=== PATIENT | male | born 1950 | race Caucasian/White ===

== ENCOUNTER 2017-01-12 08:05 | Outpatient (CLI) | payer BC, OTHER ==
--- NOTE | 2017-01-12 09:02 | RAD ---
ABDOMEN ONE VIEW: History: Abdominal pain. FINDINGS/IMPRESSION: The bowel gas pattern is unremarkable. No suspicious calcifications are seen. There are degenerative changes in the spine. POS: [facility]
== END 2017-01-12 08:06 | disposition home or self-care (01) ==
LOC: RAD-FRANK 08:05
PROVIDERS: ATTEND Nurse Practitioner Family
DX: R10.9 Unspecified abdominal pain (principal); M47.899 Other spondylosis, site unspecified
CPT/HCPCS: 74000

== ENCOUNTER 2018-11-09 07:50 | Outpatient (CLI) | payer MEDICARE, BC ==
--- NOTE | 2018-11-09 08:03 | RAD ---
Exam: Chest 2 views HISTORY:Cough Comparison: 05/05/2016 FINDINGS: Lungs: No masses or consolidation. Mild linear densities are seen bilaterally, likely volume loss. Cardiac silhouette: Normal size Pulmonary vessels: Normal Pleural Spaces: Clear Pneumothorax: None Osseous abnormalities: None of acuity. IMPRESSION: Stable exam. No focal consolidation.
== END 2018-11-09 07:51 | disposition home or self-care (01) ==
LOC: RAD-FRANK 07:50
PROVIDERS: ATTEND Nurse Practitioner Family
DX: R05 Cough (principal)
CPT/HCPCS: 71046

== ENCOUNTER 2022-07-09 08:07 | Outpatient (CLI) | payer MEDICARE, BC | END 2022-07-09 08:08 | disposition home or self-care (01) | LOC: RAD-FRANK 08:07 | PROVIDERS: ATTEND Nurse Practitioner Family | DX: R07.89 Other chest pain (principal) | CPT/HCPCS: 71046 ==

== ENCOUNTER 2022-08-05 07:54 | Outpatient (CLI) | payer MEDICARE, BC ==
[2022-08-05] MEDS ORDERED: Iopamidol 370 76% 100 ML VIAL ONE (10:22)
== END 2022-08-05 07:55 | disposition home or self-care (01) ==
LOC: BICCT 07:54
PROVIDERS: ATTEND Nurse Practitioner Family
DX: R07.89 Other chest pain (principal)
CPT/HCPCS: 71260; Q9967

== ENCOUNTER 2023-01-08 10:58 | Observation (INO) | payer MEDICARE, BC ==
[2023-01-08 11:30] LABS: #Basophils 0.1 thou/uL (0.0-0.2); #Eosinphils 0.6 thou/uL (0.0-0.7); #Neutrophils 6.1 thou/uL (1.40-6.50); %Basophils 0.6 % (0.0-1.0); %Eosinophils 5.8 % (0.0-10.0); %Lymphocytes 19.9 % (21.0-51.0); %Monocytes 10.5 % (0.0-10.0); Hematocrit 39.6 % (42.0-52.0); Hemoglobin 13.9 g/dL (14.0-18.0); Mean Corpuscular HGB CONC 35.1 g/dL (32.0-36.0); Mean Corpuscular Hemoglobin 30.5 pg (27.0-31.0); Mean Corpuscular Volume 86.8 fl (78.0-98.0); Mean Platelet Volume 9.5 fL (7.4-10.4); Platelet Count 250 10x3/uL (130-400); RBC Distribution Width 11.9 % (11.5-14.5); Red Blood Cell (RBC) Count 4.56 mill/uL (4.70-6.10); White Blood Cell (WBC) Count 9.7 10x3/uL (4.8-10.8)
[2023-01-08 11:58] LABS: ALT (SGPT) 15 U/L (8-55); AST (SGOT) 16 U/L (5-34); Albumin 4.9 g/dL (3.4-4.8); Alkaline Phosphatase 63 U/L (40-110); Anion Gap 12 mmol/L (10-20); BUN (Urea Nitrogen) 18 mg/dL (8.4-25.7); Bilirubin, Total 0.6 mg/dL (0.2-1.2); Calc. Creatinine Clearance 0 mL/min (70-130); Calcium 10.9 mg/dL (7.8-10.44); Carbon Dioxide 24 mmol/L (23-31); Chloride 106 mmol/L (98-107); Estimated GFR 71; Globulin 2.3 g/dL (2.4-3.5); Glucose 107 mg/dL (80-115); Potassium 4.4 mmol/L (3.5-5.1); Protein, Total 7.2 g/dL (5.8-8.1); Sodium 138 mmol/L (136-145)
[2023-01-08] MEDS ORDERED: Ketorolac Tromethamine 30 MG/ML VIAL ONE (13:38)
[2023-01-08 14:03] LABS: Bacteria/HPF None Seen HPF (None Seen); Bilirubin Negative (Negative); Blood, Urine Negative (Negative); CAUTI Indications for Culture Pelvic or flank pain; Clarity Clear (Clear); Glucose, Urine (Dipstick) Normal (Negative); Ketone, Urine Negative (Negative); Leukocyte Negative Leu/uL (Negative); Nitrite Negative (Negative); Protein, Urine (Dipstick) Negative (Neg-Trace); RBC/HPF 0-3 HPF (0-3); Specific Gravity, Urine 1.012 (1.002-1.036); Squamous Epithelial None Seen HPF (0-3); Urobilinogen Normal mg/dL (Less than 2); WBC/HPF 0-3 HPF (0-3); pH, Urine 5.5 (5.0-9.0)
[2023-01-08] MEDS ORDERED: Iopamidol-370 76% 500 ML MDV (1 ML CHARGE) ONE (14:06)
[2023-01-08 14:10] LABS: Urine Culture Reflex No No
[2023-01-08] MEDS ORDERED: Piperacillin/Tazobactam 3.375 GM VIAL ONE (16:03)
[2023-01-08] MEDS ORDERED: Ondansetron PF 4 MG/2 ML Vial IVP PRN (16:28)
[2023-01-08] MEDS ORDERED: Ipratropium/Albuterol 3 ML NEB NEB PRN (16:28)
[2023-01-08] MEDS ORDERED: traMADol HCl 50 MG TAB PO PRN (16:28)
[2023-01-08] MEDS ORDERED: Acetaminophen 325 MG TAB PO PRN (16:28)
[2023-01-08] MEDS ORDERED: Senokot 8.6 MG TAB PO PRN (16:30)
[2023-01-08] MEDS: Acetaminophen 500 MG TAB PO SCH (18:27)
[2023-01-08] MEDS: Sodium Chloride 0.9% 1,000 ML IV SCH ×2 (18:27→22:30)
[2023-01-08] MEDS ORDERED: Bupivacaine 0.25% HCL 30 ML VIAL ONE ×2 (19:39→20:03)
[2023-01-08] MEDS ORDERED: EPINEPHrine 1 MG/ML AMP ONE ×2 (19:39→20:03)
[2023-01-08] MEDS ORDERED: Bupivacaine PF 0.5% 30 ML VIAL ONE (20:03)
[2023-01-08] MEDS ORDERED: Ondansetron HCl/PF 4 MG/2 ML Vial IVP PRN (20:25)
[2023-01-08] MEDS ORDERED: Promethazine HCl 25 MG/ML VIAL IM PRN (20:25)
[2023-01-08] MEDS ORDERED: fentaNYL PF 100 MCG/2 ML SYRINGE ONE (20:31)
[2023-01-08] MEDS ORDERED: Rocuronium Bromide 10 MG/ML (10ML VIAL) ONE (20:42)
[2023-01-08] MEDS ORDERED: Ondansetron PF 4 MG/2 ML Vial ONE (20:42)
[2023-01-08] MEDS ORDERED: Lidocaine 1% PF 5 ML VIAL ONE (20:42)
[2023-01-08] MEDS ORDERED: Succinylcholine 200 MG/10 ml SYRINGE FS ONE (20:42)
[2023-01-08] MEDS ORDERED: PROPOFOL 200 MG/20 ML VIAL ONE (20:42)
[2023-01-08] MEDS: Famotidine/PF 20 mg/2ml Vial SLOW IVP SCH (21:41)
[2023-01-09] MEDS: Acetaminophen 500 MG TAB PO SCH ×2 (00:40→05:36)
[2023-01-09] MEDS: Ketorolac Tromethamine 30 MG/ML VIAL IVP SCH ×2 (00:42→05:37)
[2023-01-09] MEDS: Famotidine/PF 20 mg/2ml Vial SLOW IVP SCH (07:49)
[2023-01-09 08:41] VITALS: BP 148/75; TEMP 97.7
[2023-01-09] MEDS ORDERED: Polyethylene Glycol 3350 17 GM Packet PO SCH (09:00)
== END 2023-01-09 10:54 | disposition home or self-care (01) ==
LOC: ERS 10:58 → T4-A 16:28
PROVIDERS: ADMIT Surgery; ATTEND Surgery
PROC: 0DTJ4ZZ Resection of Appendix, Percutaneous Endoscopic Approach (ICD-10-PCS; principal; 2023-01-08)
DX: K35.30 Acute appendicitis with localized peritonitis, without perforation or gangrene (principal); I10 Essential (primary) hypertension; E78.5 Hyperlipidemia, unspecified; Z98.890 Other specified postprocedural states; Z88.2 Allergy status to sulfonamides; Z79.899 Other long term (current) drug therapy
CPT/HCPCS: 44970; 74177; 80053; 81001; 83605; 85025; 87040; G0378 ×2; 36415; 88304; 96361; 96365; 96375; J0171; J1885; J2405; J2543; J2704; J7050; Q9967; S0020; S0028

== ENCOUNTER 2024-04-04 12:01 | Outpatient (CLI) | payer MEDICARE, BC ==
[2024-04-04 13:46] LABS: #Basophils 0.06 10x3/uL (0.0-0.2); %Basophils 0.8 % (0.0-1.0); %Eosinophils 6.6 % (0.0-10.0); %Lymphocytes 31.8 % (21.0-51.0); %Neutrophils 49.7 % (42.0-75.0); Hematocrit 36.8 % (42.0-52.0); Hemoglobin 12.6 g/dL (14.0-18.0); Mean Corpuscular HGB CONC 34.2 g/dL (32.0-36.0); Mean Corpuscular Hemoglobin 29.4 pg (27.0-31.0); Mean Corpuscular Volume 85.8 fL (78.0-98.0); Mean Platelet Volume 9.6 fL (7.4-10.4); Platelet Count 291 10x3/uL (130-400); RBC Distribution Width 12.9 % (11.5-14.5); Red Blood Cell (RBC) Count 4.29 mill/uL (4.70-6.10)
[2024-04-04 13:59] LABS: Anion Gap 13 mmol/L (10-20); BUN (Urea Nitrogen) 22 mg/dL (8.4-25.7); Calc. Creatinine Clearance 0 mL/min (70-130); Calcium 11.2 mg/dL (7.8-10.44); Carbon Dioxide 25 mmol/L (23-31); Chloride 108 mmol/L (98-107); Estimated GFR 62; Glucose 91 mg/dL (83-110); Sodium 142 mmol/L (136-145)
[2024-04-04 14:09] LABS: INR-International Normal Ratio 1.1; PTT 32.8 sec (22.9-36.1); Prothrombin Time 13.7 sec (12.0-14.7)
== END 2024-04-04 12:02 | disposition home or self-care (01) ==
LOC: LABBT 12:01
PROVIDERS: ATTEND Urology
DX: Z01.818 Encounter for other preprocedural examination (principal); N13.39 Other hydronephrosis; C61 Malignant neoplasm of prostate
CPT/HCPCS: 80048; 85025; 85610; 85730; 87086; 93005; 93010

== ENCOUNTER 2024-04-11 08:56 | Day surgery (SDC) | payer MEDICARE, BC ==
[2024-04-04 12:28] VITALS: BMI 31.5
[2024-04-11] MEDS ORDERED: PROPOFOL 20 ML ONE (10:35)
[2024-04-11] MEDS ORDERED: Lidocaine 2% PF 5 ML VIAL ONE (10:36)
[2024-04-11] MEDS ORDERED: fentaNYL PF 100 MCG/2 ML SYRINGE ONE (11:10)
[2024-04-11] MEDS ORDERED: CEFAZOLIN 2 GM VIAL ONE (11:17)
[2024-04-11] MEDS ORDERED: Ondansetron PF 4 MG/2 ML Vial ONE (11:34)
[2024-04-11] MEDS ORDERED: Dexamethasone 4 mg/ml Vial ONE (11:34)
== END 2024-04-11 13:32 | disposition home or self-care (01) ==
LOC: SDC 08:56
PROVIDERS: ATTEND Urology
PROC: BT1FZZZ Fluoroscopy of Left Kidney, Ureter and Bladder (ICD-10-PCS; principal; 2024-04-11)
PROC: 0T778DZ Dilation of Left Ureter with Intraluminal Device, Via Natural or Artificial Opening Endoscopic (ICD-10-PCS; 2024-04-11)
DX: N13.1 Hydronephrosis with ureteral stricture, not elsewhere classified (principal); C61 Malignant neoplasm of prostate; I10 Essential (primary) hypertension; E78.00 Pure hypercholesterolemia, unspecified; K21.9 Gastro-esophageal reflux disease without esophagitis; Z90.49 Acquired absence of other specified parts of digestive tract; Z90.79 Acquired absence of other genital organ(s); Z98.49 Cataract extraction status, unspecified eye; Z98.890 Other specified postprocedural states; Z88.1 Allergy status to other antibiotic agents; Z88.2 Allergy status to sulfonamides; Z79.82 Long term (current) use of aspirin; Z79.899 Other long term (current) drug therapy
CPT/HCPCS: 52332; 74420; J1100; J2405; J2704; 88104; 88112; 88305

== ENCOUNTER 2024-10-26 12:31 | Outpatient (CLI) | payer MEDICARE, BC ==
[2024-10-26] MEDS ORDERED: Furosemide 40 MG (4 mL) VIAL ONE (13:19)
== END 2024-10-26 12:32 | disposition home or self-care (01) ==
LOC: NM 12:31
PROVIDERS: ATTEND Urology
DX: N13.39 Other hydronephrosis (principal); R93.421 Abnormal radiologic findings on diagnostic imaging of right kidney
CPT/HCPCS: 78708; A4641; A9562; J1940

== ENCOUNTER 2024-11-06 15:01 | Outpatient (CLI) | payer MEDICARE, BC ==
[2024-11-06 15:45] LABS: #Basophils 0.06 10x3/uL (0.0-0.2); #Eosinophils 0.22 10x3/uL (0.0-0.7); #Monocytes 0.58 10x3/uL (0.11-0.59); #Neutrophils 5.86 10x3/uL (1.40-6.50); %Basophils 0.8 % (0.0-1.0); %Eosinophils 2.9 % (0.0-10.0); %Lymphocytes 10.9 % (21.0-51.0); %Monocytes 7.6 % (0.0-10.0); %Neutrophils 76.9 % (42.0-75.0); Hematocrit 32.8 % (42.0-52.0); Hemoglobin 10.8 g/dL (14.0-18.0); Mean Corpuscular Hemoglobin 30.0 pg (27.0-31.0); Mean Corpuscular Volume 91.1 fL (78.0-98.0); Platelet Count 306 10x3/uL (130-400); Red Blood Cell (RBC) Count 3.60 mill/uL (4.70-6.10); White Blood Cell (WBC) Count 7.62 10x3/uL (4.8-10.8)
[2024-11-06 15:59] LABS: INR-International Normal Ratio 1.0; PTT 30.2 sec (22.9-36.1); Prothrombin Time 13.0 sec (12.0-14.7)
[2024-11-06 16:06] LABS: Anion Gap 13 mmol/L (10-20); BUN (Urea Nitrogen) 25 mg/dL (8.4-25.7); Calc. Creatinine Clearance 0 mL/min (70-130); Calcium 10.0 mg/dL (7.8-10.44); Carbon Dioxide 25 mmol/L (23-31); Chloride 107 mmol/L (98-107); Glucose 114 mg/dL (83-110); Potassium 4.6 mmol/L (3.5-5.1); Sodium 140 mmol/L (136-145)
== END 2024-11-06 15:02 | disposition home or self-care (01) ==
LOC: LABBT 15:01
PROVIDERS: ATTEND Urology
DX: Z01.818 Encounter for other preprocedural examination (principal); N13.39 Other hydronephrosis
CPT/HCPCS: 80048; 85025; 85610; 85730; 87086; 93005; 93010

== ENCOUNTER 2024-11-13 09:50 | Day surgery (SDC) | payer MEDICARE, BC ==
[2024-11-06 15:16] VITALS: BMI 32.3
[2024-11-13] MEDS ORDERED: PROPOFOL 20 ML ONE (11:39)
[2024-11-13] MEDS ORDERED: CEFAZOLIN 2 GM VIAL ONE (11:53)
[2024-11-13] MEDS ORDERED: Ondansetron PF 4 MG/2 ML Vial ONE (12:20)
== END 2024-11-13 14:00 | disposition home or self-care (01) ==
LOC: SDC 09:50
PROVIDERS: ATTEND Urology
PROC: BT14ZZZ Fluoroscopy of Kidneys, Ureters and Bladder (ICD-10-PCS; principal; 2024-11-13)
PROC: 0T778DZ Dilation of Left Ureter with Intraluminal Device, Via Natural or Artificial Opening Endoscopic (ICD-10-PCS; 2024-11-13)
DX: N13.5 Crossing vessel and stricture of ureter without hydronephrosis (principal); C79.82 Secondary malignant neoplasm of genital organs; I10 Essential (primary) hypertension; E78.5 Hyperlipidemia, unspecified; K21.9 Gastro-esophageal reflux disease without esophagitis; Z98.41 Cataract extraction status, right eye; Z98.42 Cataract extraction status, left eye; Z90.79 Acquired absence of other genital organ(s); Z88.2 Allergy status to sulfonamides; Z79.82 Long term (current) use of aspirin; Z79.899 Other long term (current) drug therapy
CPT/HCPCS: 52005; 52332; 74420; C1769; C2617; J1100; J2405; J2704; J3010; Q9967

== ENCOUNTER 2024-12-13 13:59 | Outpatient (CLI) | payer MEDICARE, BC ==
[2024-12-13 15:25] LABS: #Basophils 0.10 10x3/uL (0.0-0.2); #Eosinophils 0.59 10x3/uL (0.0-0.7); #Monocytes 0.73 10x3/uL (0.11-0.59); #Neutrophils 4.69 10x3/uL (1.40-6.50); %Basophils 1.4 % (0.0-1.0); %Eosinophils 8.0 % (0.0-10.0); %Lymphocytes 16.6 % (21.0-51.0); %Monocytes 9.9 % (0.0-10.0); %Neutrophils 63.7 % (42.0-75.0); Hematocrit 35.9 % (42.0-52.0); Hemoglobin 11.9 g/dL (14.0-18.0); Mean Corpuscular Hemoglobin 30.2 pg (27.0-31.0); Mean Corpuscular Volume 91.1 fL (78.0-98.0); Platelet Count 298 10x3/uL (130-400); Red Blood Cell (RBC) Count 3.94 mill/uL (4.70-6.10); White Blood Cell (WBC) Count 7.36 10x3/uL (4.8-10.8)
[2024-12-13 15:40] LABS: INR-International Normal Ratio 1.0; PTT 30.0 sec (22.9-36.1); Prothrombin Time 13.0 sec (12.0-14.7)
[2024-12-13 15:48] LABS: Anion Gap 15 mmol/L (10-20); BUN (Urea Nitrogen) 29 mg/dL (8.4-25.7); Calc. Creatinine Clearance 0 mL/min (70-130); Calcium 11.6 mg/dL (7.8-10.44); Carbon Dioxide 25 mmol/L (23-31); Chloride 105 mmol/L (98-107); Glucose 93 mg/dL (83-110); Potassium 3.6 mmol/L (3.5-5.1); Sodium 141 mmol/L (136-145)
== END 2024-12-13 14:00 | disposition home or self-care (01) ==
LOC: LABBT 13:59
PROVIDERS: ATTEND Urology
DX: Z01.812 Encounter for preprocedural laboratory examination (principal); N13.1 Hydronephrosis with ureteral stricture, not elsewhere classified
CPT/HCPCS: 80048; 85025; 85610; 85730; 87086

== ENCOUNTER 2025-01-01 05:54 | Day surgery (SDC) | payer MEDICARE, BC ==
[2024-12-13 14:09] VITALS: BMI 30.8
[2025-01-01] MEDS ORDERED: CEFAZOLIN 1 GM VIAL ONE (07:08)
[2025-01-01] MEDS ORDERED: Famotidine/PF 20 mg/2ml Vial ONE (07:17)
[2025-01-01] MEDS ORDERED: Iopamidol 0 ML ONE (07:19)
[2025-01-01] MEDS ORDERED: Lidocaine 1% PF 5 ML VIAL ONE (07:25)
[2025-01-01] MEDS ORDERED: fentaNYL PF 100 MCG/2 ML SYRINGE ONE (07:25)
[2025-01-01] MEDS ORDERED: PROPOFOL 20 ML ONE (07:25)
[2025-01-01] MEDS ORDERED: Glycopyrrolate 0.2 MG/ML 5 ML SYRINGE ONE (07:27)
[2025-01-01] MEDS ORDERED: Ondansetron PF 4 MG/2 ML Vial ONE (07:55)
== END 2025-01-01 09:35 | disposition home or self-care (01) ==
LOC: SDC 05:54
PROVIDERS: ATTEND Urology
PROC: 0T778DZ Dilation of Left Ureter with Intraluminal Device, Via Natural or Artificial Opening Endoscopic (ICD-10-PCS; principal; 2025-01-01)
DX: N13.1 Hydronephrosis with ureteral stricture, not elsewhere classified (principal); C79.82 Secondary malignant neoplasm of genital organs; I10 Essential (primary) hypertension; E78.00 Pure hypercholesterolemia, unspecified; K21.9 Gastro-esophageal reflux disease without esophagitis; Z90.49 Acquired absence of other specified parts of digestive tract; Z88.2 Allergy status to sulfonamides; Z79.899 Other long term (current) drug therapy
CPT/HCPCS: 52332; 74420; J0690; J1100; J2704; Q9967; C1769; C2617

== ENCOUNTER 2025-01-11 08:04 | Outpatient (CLI) | payer MEDICARE, BC | END 2025-01-11 08:05 | disposition home or self-care (01) | LOC: NM 08:04 | PROVIDERS: ATTEND Urology | DX: C61 Malignant neoplasm of prostate (principal); N13.30 Unspecified hydronephrosis; R93.422 Abnormal radiologic findings on diagnostic imaging of left kidney | CPT/HCPCS: 78707; A9562 ==

== ENCOUNTER 2025-01-31 12:16 | Outpatient (CLI) | payer MEDICARE, BC ==
[2025-01-31 13:17] LABS: Bacteria/HPF None Seen HPF (None Seen); Glucose, Urine (Dipstick) Normal (Negative); Leukocyte 250 Leu/uL (Negative); Protein, Urine (Dipstick) 50 mg/dL (Neg-Trace); RBC/HPF Greater than 50 HPF (0-3); Specific Gravity, Urine 1.023 (1.002-1.036); WBC/HPF 21-50 HPF (0-3)
[2025-01-31 13:19] LABS: #Basophils 0.06 10x3/uL (0.0-0.2); #Eosinophils 0.26 10x3/uL (0.0-0.7); #Monocytes 0.80 10x3/uL (0.11-0.59); #Neutrophils 4.02 10x3/uL (1.40-6.50); %Basophils 0.9 % (0.0-1.0); %Eosinophils 4.1 % (0.0-10.0); %Lymphocytes 18.2 % (21.0-51.0); %Monocytes 12.7 % (0.0-10.0); %Neutrophils 63.6 % (42.0-75.0); Hematocrit 34.4 % (42.0-52.0); Hemoglobin 11.2 g/dL (14.0-18.0); Mean Corpuscular Hemoglobin 29.5 pg (27.0-31.0); Mean Corpuscular Volume 90.5 fL (78.0-98.0); Platelet Count 281 10x3/uL (130-400); Red Blood Cell (RBC) Count 3.80 mill/uL (4.70-6.10); White Blood Cell (WBC) Count 6.32 10x3/uL (4.8-10.8)
[2025-01-31 13:22] LABS: INR-International Normal Ratio 1.0; Prothrombin Time 13.0 sec (12.0-14.7)
[2025-01-31 13:23] LABS: PTT 29.5 sec (22.9-36.1)
[2025-01-31 13:38] LABS: Anion Gap 12 mmol/L (10-20); BUN (Urea Nitrogen) 30 mg/dL (8.4-25.7); Calc. Creatinine Clearance 0 mL/min (70-130); Calcium 11.4 mg/dL (7.8-10.44); Carbon Dioxide 23 mmol/L (23-31); Chloride 107 mmol/L (98-107); Glucose 116 mg/dL (83-110); Potassium 4.4 mmol/L (3.5-5.1); Sodium 138 mmol/L (136-145)
== END 2025-01-31 12:17 | disposition home or self-care (01) ==
LOC: LABBT 12:16
PROVIDERS: ATTEND Urology
DX: Z01.818 Encounter for other preprocedural examination (principal); N20.1 Calculus of ureter
CPT/HCPCS: 36415; 80048; 81001; 84153; 85025; 85610; 85730; 87086; 93005; 93010

== ENCOUNTER 2025-02-09 09:58 | Day surgery (SDC) | payer MEDICARE, BC ==
[2025-01-31 12:26] VITALS: BMI 30.7
[2025-02-09] MEDS ORDERED: LevoFLOXacin D5W 500 mg (100 mL) BAG ONE (11:18)
[2025-02-09] MEDS ORDERED: PHENYLEPHRINE-NS 100 MCG/ML 10 ML SYRINGE ONE (12:44)
[2025-02-09] MEDS ORDERED: Ondansetron PF 4 MG/2 ML Vial ONE (12:57)
[2025-02-09] MEDS ORDERED: Oxybutynin 5 MG TAB ONE (13:43)
== END 2025-02-09 14:40 | disposition home or self-care (01) ==
LOC: SDC 09:58
PROVIDERS: ATTEND Urology
PROC: BT1DZZZ Fluoroscopy of Right Kidney, Ureter and Bladder (ICD-10-PCS; principal; 2025-02-09)
PROC: 0T778DZ Dilation of Left Ureter with Intraluminal Device, Via Natural or Artificial Opening Endoscopic (ICD-10-PCS; 2025-02-09)
DX: N13.5 Crossing vessel and stricture of ureter without hydronephrosis (principal); I10 Essential (primary) hypertension; E78.00 Pure hypercholesterolemia, unspecified; E21.3 Hyperparathyroidism, unspecified; C61 Malignant neoplasm of prostate; Z98.41 Cataract extraction status, right eye; Z98.42 Cataract extraction status, left eye; Z88.2 Allergy status to sulfonamides; Z79.899 Other long term (current) drug therapy
CPT/HCPCS: 52005; 52332; 74420; C1769; C2617; J1100; J1956; J2405; J3010; Q9967